=== PATIENT | female | born 1960 | race Caucasian/White ===

== ENCOUNTER 2019-12-02 18:10 | Emergency (ER) | payer OTHER ==
[~2019-12-02] VITALS: Ht 170.2 cm; Wt 97.7 kg
[2019-12-02] MEDS ORDERED: LOSA100T14 PO (18:51)
[2019-12-02] MEDS ORDERED: MONT10TA11 PO (18:51)
[2019-12-02] MEDS ORDERED: HYDR12.517 PO (18:51)
--- NOTE | 2019-12-02 18:53 | NUR ---
Report to ARCHANA Ortiz
[2019-12-02 18:56] LABS: BASOPHILS # (AUTO) 0.02 x10^3/uL (0-0.1); BASOPHILS % (AUTO) 0 % (0-1); EOSINOPHILS # (AUTO) 0.29 x10^3/uL (0-0.4); EOSINOPHILS % (AUTO) 5 % (1-7); LYMPHOCYTES # (AUTO) 1.59 x10^3/uL (1-3.4); LYMPHOCYTES % (AUTO) 25 % (22-44); MD NO; MEAN CORPUSCULAR HEMOGLOBIN 29.3 pg (27.0-34.8); MEAN CORPUSCULAR HGB CONC 33.9 g/dL (32.4-35.8); MEAN CORPUSCULAR VOLUME 86.3 fL (80-100); MEAN PLATELET VOLUME 7.7 fL (7.4-10.4); MONOCYTES # (AUTO) 0.55 x10^3/uL (0.2-0.8); MONOCYTES % (AUTO) 8 % (2-9); NEUTROPHILS # (AUTO) 4.02 x10^3/uL (1.8-6.8); NEUTROPHILS % (AUTO) 62 % (42-75); PLATELET COUNT 271 x10^3/uL (130-400); RED BLOOD COUNT 4.91 x10^6/uL (3.82-5.3); RED CELL DISTRIBUTION WIDTH 13.5 % (9.6-15.2)
--- NOTE | 2019-12-02 18:56 | NUR ---
REPORT RECEIVED FROM ROSALIND MAGAÑA. ASSUMED CARE OF PT. XRAY AT BEDSIDE. PT SITTING ON GURNEY JOKING WITH FAMILY MEMBER IN ROOM. AWAITING LABS TO BE DRAWN, ALL VITALS STABLE.
[2019-12-02 19:07] LABS: ALANINE AMINOTRANSFERASE 44 U/L (12-78); ALBUMIN 3.8 g/dL (3.4-5.0); ANION GAP 5 mmol/L (5-15); CALCIUM 9.3 mg/dL (8.5-10.1); CHLORIDE 102 mmol/L (98-107); CREATININE 0.94 mg/dL (0.55-1.02)
[2019-12-02 19:11] LABS: ALKALINE PHOSPHATASE 76 U/L (45-117); BILIRUBIN,TOTAL 0.6 mg/dL (0.2-1.0); TOTAL PROTEIN 7.2 g/dL (6.4-8.2); TROPONIN I < 0.015 ng/mL (0.000-0.045)
--- NOTE | 2019-12-02 19:29 | NUR ---
PT AMBULATORY TO RESTROOM, STEADY GAIT NOTED.
--- NOTE | 2019-12-02 19:39 | NUR ---
URINE SAMPLE PROVIDED, SENT TO LAB
[2019-12-02 19:48] LABS: MICROSCOPIC AUTO
[2019-12-02 20:00] LABS: CULTURE INDICATED? YES
[2019-12-02] MEDS ORDERED: FUROSEMIDE 40 MG TABLET ONE (20:06)
[2019-12-02] MEDS ORDERED: FUROSEMIDE 20 MG TABLET ONE (20:07)
--- NOTE | 2019-12-02 20:12 | NUR ---
PT DISCUSSED POSSIBLE ALLERGY TO LASIX WITH DR. BROOKS. THEY CAME TO THE CONCLUSION THE PT WOULD LIKE TO TRY THE LASIX ORALLY THIS TIME. PT WILL BE MONITORED AFTERWARDS FOR AN HOUR PT MEDICATED PER EMAR. 5 RIGHTS ADDRESSED.
[2019-12-02] MEDS ORDERED: FUROSEMIDE 20 MG TABLET PO SCH (20:30)
--- NOTE | 2019-12-02 21:00 | NUR ---
PT DENIES ANY SIGNS OR SYMPTOMS OF ALLERGIC REACTION AT THIS TIME. WILL CONTINUE TO MONITOR FOR AN HOUR AFTER ADMINISTRATION
[2019-12-02 21:25] VITALS: BP 136/72
--- NOTE | 2019-12-02 21:47 | NUR ---
Patient/Caregiver given discharge instructions and they have confirmed that they understand the instructions. Patient ambulatory with steady gait.
== END 2019-12-02 21:49 | disposition home or self-care (01) ==
LOC: ED 21:30
DX: I50.9 Heart failure, unspecified (principal); R60.0 Localized edema; I10 Essential (primary) hypertension; J44.9 Chronic obstructive pulmonary disease, unspecified; R94.31 Abnormal electrocardiogram [ECG] [EKG]; Z90.710 Acquired absence of both cervix and uterus; Z87.891 Personal history of nicotine dependence
CPT/HCPCS: 36415; 71045; 80053; 81001; 83880; 84484; 85025; 87086; 93005; 99285

== ENCOUNTER → 2020-07-09 | Outpatient (CLI) | payer MEDICAID, OTHER ==
[~2020-07-09] MED LIST: ASPI81TA45 PO; CARV3.1212 PO; FLUT1DIS3 INH; FURO20TA3 PO; HYDR12.517 PO; LOSA100T14 PO; MONT10TA11 PO; MULT-484 PO; POTA20PA25 PO
== END | disposition home or self-care (01) ==
LOC: CFH 08:45
PROVIDERS: ATTEND Physician Assistant Medical
DX: I35.8 Other nonrheumatic aortic valve disorders (principal); I11.0 Hypertensive heart disease with heart failure; I50.9 Heart failure, unspecified; Z87.891 Personal history of nicotine dependence
CPT/HCPCS: 93306

== ENCOUNTER → 2021-01-29 | Outpatient (CLI) | payer MEDICAID ==
[~2021-01-29] MED LIST changes: -MONT10TA11 PO; +MONT10TA17 PO
== END | disposition home or self-care (01) ==
LOC: CVU 10:57
PROVIDERS: ATTEND Physician Assistant Medical
DX: I06.1 Rheumatic aortic insufficiency (principal); I71.2 Thoracic aortic aneurysm, without rupture; I11.9 Hypertensive heart disease without heart failure
CPT/HCPCS: 93306; 93356